=== PATIENT | female | born 1995 | race African-American/Black ===

== ENCOUNTER → 2020-04-09 | Outpatient (CLI) | payer OTHER ==
[~2020-04-09] MED LIST: MOTRIN800 MG PO; ZITHROMAX250 MG PO
== END | disposition home or self-care (01) ==
LOC: COVID19 16:08
PROVIDERS: ATTEND Internal Medicine
DX: Z20.828 Contact with and (suspected) exposure to other viral communicable diseases (principal)

== ENCOUNTER 2020-08-11 13:35 | Emergency (ER) | payer OTHER ==
[~2020-08-11] VITALS: Ht 170.1 cm; Wt 90.7 kg
[2020-08-11] MEDS ORDERED: DICLEGIS DR 101 EACH PO (14:03)
[2020-08-11] MEDS ORDERED: PRENATAL ONE D1 EACH PO (14:04)
== END 2020-08-11 14:08 | disposition home or self-care (01) ==
LOC: ED 13:35
DX: Z32.01 Encounter for pregnancy test, result positive (principal)

== ENCOUNTER 2020-09-09 13:01 | Emergency (ER) | payer OTHER ==
[~2020-09-09] VITALS: Ht 170.1 cm; Wt 90.7 kg
[~2020-09-09 13:01] MED LIST changes: +DICLEGIS DR 101 EACH PO; +PRENATAL ONE D1 EACH PO
[2020-09-09 14:23] LABS: BILIRUBIN Negative (Negative); BLOOD 2+ (Negative); CLARITY Clear (Clear); COLOR Yellow (Yellow); GLUCOSE Negative (Negative); KETONE Negative (Negative); LEUKO ESTERASE Negative (Negative); NITRITE Negative (Negative); PH 6.5 (4.5-8.0); SPECIFIC GRAVITY 1.015 (1.001-1.030)
[2020-09-09 14:27] LABS: BASO % 0.2 % (0.0-1.0); EOS # 0.4 10*3/uL (0.0-0.4); EOS % 4.2 % (1.0-4.0); HEMATOCRIT 37.4 % (37.0-47.0); LYMPH # 1.7 10*3/uL (1.3-4.4); LYMPH % 17.4 % (27.0-41.0); MEAN CORPUSCULAR HGB 30.6 pg (27.0-31.0); MEAN CORPUSCULAR HGB CONC 34.8 g/dl (33.0-37.0); MEAN PLATELET VOLUME 10.2 fl (9.6-12.3); MONO # 0.5 10*3/uL (0.1-1.0); NEUT # 6.9 10*3/uL (2.3-7.9); NEUT % 72.9 % (47.0-73.0); PLATELET COUNT AUTOMATED 245 10*3/uL (130-400); RED BLOOD COUNT 4.25 10*6/uL (4.10-5.10); RED CELL DISTRI WIDTH 13.1 % (0-14.5); WHITE BLOOD COUNT 9.5 10*3/uL (4.8-10.8)
[2020-09-09 14:38] LABS: BACTERIA 3+; RBC 16-20 rbc/hpf (0-2)
[2020-09-09 14:39] LABS: ALBUMIN 3.5 gm/dl (3.1-4.5); ALKALINE PHOSPHATASE 104 U/L (45-117); BUN 7 mg/dl (7-24); CHLORIDE 105 mmol/L (98-107); CREATININE 0.81 mg/dL (0.55-1.02); POTASSIUM 3.7 mmol/L (3.5-5.1); SGOT/AST 17 IU/L (3-35); SGPT/ALT 33 U/L (12-78); SODIUM 134 mmol/L (136-145); TOTAL PROTEIN 8.3 gm/dL (6.4-8.2)
[2020-09-09] MEDS ORDERED: MACROBID100 M1 PO (16:23)
== END 2020-09-09 16:37 | disposition home or self-care (01) ==
LOC: ED 13:01
PROVIDERS: Physician Assistant
DX: O26.851 Spotting complicating pregnancy, first trimester (principal); O23.591 Infection of other part of genital tract in pregnancy, first trimester; R82.71 Bacteriuria; Z88.8 Allergy status to other drugs, medicaments and biological substances; Z79.899 Other long term (current) drug therapy

== ENCOUNTER 2020-11-16 20:30 | Emergency (ER) | payer OTHER ==
[~2020-11-16 20:30] MED LIST changes: +MACROBID100 M1 PO
[2020-11-16 21:07] LABS: BASO % 0.3 % (0.0-1.0); EOS # 0.5 10*3/uL (0.0-0.4); EOS % 3.4 % (1.0-4.0); HEMATOCRIT 33.3 % (37.0-47.0); LYMPH # 2.4 10*3/uL (1.3-4.4); LYMPH % 15.5 % (27.0-41.0); MEAN CELL VOLUME 92.2 fl (81.0-99.0); MEAN CORPUSCULAR HGB 31.3 pg (27.0-31.0); MEAN CORPUSCULAR HGB CONC 33.9 g/dl (33.0-37.0); MEAN PLATELET VOLUME 9.9 fl (9.6-12.3); MONO % 6.3 % (3.0-9.0); NEUT # 11.3 10*3/uL (2.3-7.9); NEUT % 73.1 % (47.0-73.0); PLATELET COUNT AUTOMATED 232 10*3/uL (130-400); RED BLOOD COUNT 3.61 10*6/uL (4.10-5.10); RED CELL DISTRI WIDTH 13.5 % (0-14.5); WHITE BLOOD COUNT 15.4 10*3/uL (4.8-10.8)
[2020-11-16 21:31] LABS: BILIRUBIN Negative (Negative); BLOOD Negative (Negative); CLARITY Clear (Clear); COLOR Yellow (Yellow); GLUCOSE Negative (Negative); KETONE Negative (Negative); LEUKO ESTERASE Trace (Negative); NITRITE Negative (Negative); SPECIFIC GRAVITY <= 1.005 (1.001-1.030); UROBILINOGEN 0.2 E.U./dl (0.0-1.0)
[2020-11-16 21:34] LABS: ALBUMIN 2.9 gm/dl (3.1-4.5); ALKALINE PHOSPHATASE 112 U/L (45-117); BUN 12 mg/dl (7-24); CHLORIDE 104 mmol/L (98-107); CREATININE 0.72 mg/dL (0.55-1.02); LIPASE 103 U/L (73-393); POTASSIUM 3.8 mmol/L (3.5-5.1); SGOT/AST 26 IU/L (3-35); SGPT/ALT 77 U/L (12-78); SODIUM 134 mmol/L (136-145); TOTAL PROTEIN 7.7 gm/dL (6.4-8.2)
[2020-11-16 21:57] LABS: BACTERIA 2+; EPITHELIAL CELLS 41-50; RBC 0-2 rbc/hpf (0-2)
== END 2020-11-17 00:26 | disposition home or self-care (01) ==
LOC: ED 20:30
PROVIDERS: Physician Assistant
DX: O23.92 Unspecified genitourinary tract infection in pregnancy, second trimester (principal); R82.71 Bacteriuria; O26.892 Other specified pregnancy related conditions, second trimester; R10.9 Unspecified abdominal pain; Z88.1 Allergy status to other antibiotic agents; Z3A.18 18 weeks gestation of pregnancy; Z79.899 Other long term (current) drug therapy

== ENCOUNTER → 2020-12-13 | Outpatient (CLI) | payer OTHER | END | disposition home or self-care (01) | LOC: US 16:00 | PROVIDERS: ATTEND Nurse Practitioner Women's Health | DX: Z34.02 Encounter for supervision of normal first pregnancy, second trimester (principal); Z3A.22 22 weeks gestation of pregnancy ==

== ENCOUNTER 2020-12-24 20:55 | Emergency (ER) | payer OTHER ==
[~2020-12-24] VITALS: Ht 170.1 cm; Wt 107.5 kg
[2020-12-24 23:53] LABS: BILIRUBIN Negative (Negative); BLOOD Negative (Negative); CLARITY Cloudy (Clear); COLOR Yellow (Yellow); GLUCOSE Negative (Negative); KETONE Negative (Negative); LEUKO ESTERASE Trace (Negative); NITRITE Negative (Negative); PH 6.5 (4.5-8.0); UROBILINOGEN 0.2 E.U./dl (0.0-1.0)
[2020-12-25 00:10] LABS: BACTERIA 4+; EPITHELIAL CELLS 16-20
[2020-12-25] MEDS ORDERED: MACROBID100 M1 PO (00:34)
== END 2020-12-25 01:38 | disposition home or self-care (01) ==
LOC: ED 20:55
PROVIDERS: Physician Assistant
DX: O23.42 Unspecified infection of urinary tract in pregnancy, second trimester (principal); Z3A.24 24 weeks gestation of pregnancy; Z88.1 Allergy status to other antibiotic agents; Z79.899 Other long term (current) drug therapy

== ENCOUNTER 2022-03-01 18:11 | Emergency (ER) | payer OTHER ==
[~2022-03-01] VITALS: Wt 92.1 kg
[2022-03-01] MEDS ORDERED: BENADRYL ALLERG25 M5 PO (18:54)
[2022-03-01] MEDS ORDERED: PEPCID20 MG PO (18:54)
[2022-03-01] MEDS ORDERED: PREDNISONE50 MG PO (18:54)
== END 2022-03-01 19:17 | disposition home or self-care (01) ==
LOC: ED 18:11
DX: L23.9 Allergic contact dermatitis, unspecified cause (principal); Z88.1 Allergy status to other antibiotic agents; Z88.6 Allergy status to analgesic agent

== ENCOUNTER 2022-03-19 20:24 | Emergency (ER) | payer OTHER ==
[~2022-03-19] VITALS: Ht 177.8 cm; Wt 90.7 kg
[~2022-03-19 20:24] MED LIST changes: +BENADRYL ALLERG25 M5 PO; +PEPCID20 MG PO; +PREDNISONE50 MG PO
[2022-03-19] MEDS ORDERED: PREDNISONE20 M1 PO (21:06)
[2022-03-19] MEDS ORDERED: ERYTHROMYCIN OPH1 GM OPH (21:06)
== END 2022-03-19 21:14 | disposition home or self-care (01) ==
LOC: ED 20:24
DX: H57.89 Other specified disorders of eye and adnexa (principal); Z88.1 Allergy status to other antibiotic agents; Z88.8 Allergy status to other drugs, medicaments and biological substances

== ENCOUNTER 2022-12-06 21:21 | Emergency (ER) | payer OTHER ==
[~2022-12-06] VITALS: Ht 170.1 cm; Wt 97.5 kg
[~2022-12-06 21:21] MED LIST changes: +ERYTHROMYCIN OPH1 GM OPH; +PREDNISONE20 M1 PO
[2022-12-06 22:08] LABS: BILIRUBIN Negative (Negative); BLOOD 3+ (Negative); CLARITY Clear (Clear); COLOR Orange (Yellow); GLUCOSE Negative (Negative); KETONE Trace (Negative); LEUKO ESTERASE Trace (Negative); NITRITE Negative (Negative); PH 5.5 (4.5-8.0); SPECIFIC GRAVITY 1.025 (1.001-1.030)
[2022-12-06 22:21] LABS: BACTERIA TRACE; RBC 41-50 rbc/hpf (0-2)
== END 2022-12-07 00:25 | disposition home or self-care (01) ==
LOC: ED 21:21
PROVIDERS: Internal Medicine
DX: R10.84 Generalized abdominal pain (principal); Z88.1 Allergy status to other antibiotic agents; Z88.8 Allergy status to other drugs, medicaments and biological substances

== ENCOUNTER → 2023-01-30 | Outpatient (CLI) | payer OTHER ==
[2023-01-30 16:06] LABS: BASO % 0.4 % (0.0-1.0); EOS # 1.1 10*3/uL (0.0-0.4); EOS % 11.3 % (1.0-4.0); HEMATOCRIT 39.3 % (37.0-47.0); LYMPH # 2.1 10*3/uL (1.3-4.4); LYMPH % 22.3 % (27.0-41.0); MEAN CELL VOLUME 89.3 fl (81.0-99.0); MEAN CORPUSCULAR HGB 30.9 pg (27.0-31.0); MEAN CORPUSCULAR HGB CONC 34.6 g/dl (33.0-37.0); MEAN PLATELET VOLUME 10.4 fl (9.6-12.3); MONO # 0.4 10*3/uL (0.1-1.0); MONO % 4.1 % (3.0-9.0); NEUT # 5.9 10*3/uL (2.3-7.9); NEUT % 61.7 % (47.0-73.0); PLATELET COUNT AUTOMATED 249 10*3/uL (130-400); RED CELL DISTRI WIDTH 12.9 % (0-14.5); WHITE BLOOD COUNT 9.6 10*3/uL (4.8-10.8)
[2023-01-30 16:35] LABS: ALKALINE PHOSPHATASE 130 U/L (46-116); BUN 8 mg/dl (9-23); CHLORIDE 107 mmol/L (98-107); POTASSIUM 3.4 mmol/L (3.4-5.1); SGPT/ALT 15 U/L (10-49); TOTAL PROTEIN 7.9 gm/dL (6.0-8.0)
[2023-02-02 18:06] LABS: ALTERNARIA ALTERNATA, IGE <0.10 kU/L (Class 0); AMERICAN ELM, IGE 0.27 kU/L (Class 0/I); ASPERGILLUS FUMIGATU, IGE <0.10 kU/L (Class 0); BERMUDA GRASS, IGE 0.14 kU/L (Class 0/I); BIRCH, COMMON SILVER IGE 0.44 kU/L (Class I); CLADOSPORIUM HERBARU, IGE <0.10 kU/L (Class 0); D FARINAE MITE <0.10 kU/L (Class 0); D PTERONYSSINUS <0.10 kU/L (Class 0); DOG DANDER, IGE 0.17 kU/L (Class 0/I); MAPLE LEAF SYCAMORE, IGE 0.36 kU/L (Class I); MAPLE/BOX ELDER, IGE 0.25 kU/L (Class 0/I); MOUSE URINE IGE <0.10 kU/L (Class 0); PENICILLIUM CHRYSOGENUM, IGE <0.10 kU/L (Class 0); ROUGH PIGWEED, IGE <0.10 kU/L (Class 0); SHEEP SORREL (DOCK), IGE <0.10 kU/L (Class 0); SHORT RAGWEED, IGE 0.12 kU/L (Class 0/I); TIMOTHY, IGE 0.34 kU/L (Class I); WALNUT TREE, IGE 0.37 kU/L (Class I); WHITE ASH, IGE 0.34 kU/L (Class I); WHITE MULBERRY, IGE <0.10 kU/L (Class 0); WHITE OAK, IGE 0.38 kU/L (Class I)
[2023-02-04 11:07] LABS: CODFISH, IGE <0.10 kU/L (Class 0); MILK (COW), IGE 1.85 kU/L (Class III); PEANUT, IGE 0.72 kU/L (Class II); SOYBEAN, IGE 0.16 kU/L (Class 0/I); WHEAT, IGE 1.51 kU/L (Class III)
== END | disposition home or self-care (01) ==
LOC: LAB 15:44
PROVIDERS: ATTEND Family Medicine
DX: T78.40XA Allergy, unspecified, initial encounter (principal); L50.9 Urticaria, unspecified; D72.10 Eosinophilia, unspecified; X58.XXXA Exposure to other specified factors, initial encounter